=== PATIENT | female | born 2005 | race African-American/Black ===

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

== ENCOUNTER 2024-07-16 15:00 | Emergency (ER) | payer MEDICAID ==
[~2024-07-16] VITALS: Ht 160 cm; Wt 60.0 kg
[2024-07-16 15:25] VITALS: BP 105/56; PULSE 85; RESP 18; TEMP 98.6; O2SAT 99
== END 2024-07-16 18:37 | disposition home or self-care (01) ==
LOC: ER 15:00
DX: M25.569 Pain in unspecified knee (principal); Z53.21 Procedure and treatment not carried out due to patient leaving prior to being seen by health care provider

== ENCOUNTER 2024-08-12 12:00 | Inpatient (IN) | payer SELFPAY ==
[~2024-08-12] VITALS: Ht 309.9 cm; Wt 67.6 kg
[2024-08-12 12:28] VITALS: O2SAT 100
[2024-08-12] MEDS ORDERED: ACETAMINOPHEN 500MG TABLET PO ONE (16:45)
[2024-08-12 16:49] LABS: CLARITY URINE CLOUDY (CLEAR); COLOR URINE YELLOW (YELLOW); GLUCOSE URINE NEGATIVE (NEGATIVE); KETONES URINE 4+ (NEGATIVE); LEUKOCYTE ESTERASE URINE 3+ (NEGATIVE); NITRITE URINE POSITIVE (NEGATIVE); OCCULT BLOOD URINE NEGATIVE (NEGATIVE); PH URINE 6.5 (4.5-8.0); PROTEIN URINE TRACE (NEGATIVE); SPECIFIC GRAVITY URINE 1.014 (1.005-1.030)
[2024-08-12 17:28] LABS: BACTERIA URINE 3+; RBC URINE 0-2 /hpf (0-2); SQUAMOUS EPITHELIAL CELL URINE FEW /lpf (RARE/1+); WBC URINE TNTC /hpf (0-2)
[2024-08-12 18:02] LABS: CHLORIDE 104 mEq/L (98-107); POTASSIUM 3.7 mEq/L (3.5-5.1); SODIUM 135 mEq/L (136-145)
[2024-08-12 18:03] LABS: BASOPHILS % 0.9 % (0.0-2.0); CALCIUM 10.3 mg/dL (8.7-10.4); CARBON DIOXIDE 20 mEq/L (21-32); EOSINOPHILS % 0.2 % (0.0-5.0); HEMATOCRIT. 34.5 % (36.0-48.0); HEMOGLOBIN. 11.4 g/dL (12.0-16.0); LYMPHOCYTES % 3.7 % (20.0-50.0); MEAN CORPUSCULAR HEMOGLOBIN 31.8 pg (28.0-32.0); MEAN CORPUSCULAR HGB CONC 33.1 g/dL (31.0-37.0); MEAN CORPUSCULAR VOLUME 96.1 fL (81.0-99.0); MONOCYTES % 6.7 % (2.0-8.0); NEUTROPHILS % 88.5 % (40.0-76.0); PLATELET 204 x1000/uL (130-400); RED BLOOD CELL COUNT 3.58 mill/uL (4.2-5.4); RED CELL DISTRIBUTION WIDTH 14.2 % (11.6-14.6); WHITE BLOOD COUNT 13.7 x1000/uL (4.5-11.0)
[2024-08-12 18:08] LABS: CREATININE 0.7 mg/dL (0.6-1.0); GLUCOSE 82 mg/dL (70-105)
[2024-08-12 18:10] LABS: ALANINE AMINOTRANSFERASE 24 IU/L (10-49); ALBUMIN 4.2 g/dL (3.2-4.8); ASPARTATE AMINOTRANSFERASE 28 IU/L (<34)
[2024-08-12 18:11] LABS: BILIRUBIN DIRECT 0.1 mg/dL (<=3.0); BILIRUBIN TOTAL 0.6 mg/dL (0.1-1.0); PROTEIN TOTAL 7.2 g/dL (6.0-8.3)
[2024-08-12 18:14] LABS: UREA NITROGEN BLOOD < 5 mg/dL (9-23)
[2024-08-12 18:25] LABS: DIFFERENTIAL COMMENT 1
[2024-08-12] MEDS ORDERED: CEFTRIAXONE 1GM/50ML 50 ML IV ONE (19:15)
[2024-08-12 20:52] LABS: INR 0.9; PROTHROMBIN TIME 10.4 sec (9.6-11.0)
[2024-08-12] MEDS: ACETAMINOPHEN 500MG TABLET PO NR (20:52)
[2024-08-12] MEDS: CEFTRIAXONE 1GM/50ML 50 ML IV NR (20:52)
[2024-08-12 21:30] VITALS: BP 104/35; PULSE 79; RESP 18; TEMP 36.9474; O2SAT 98
[2024-08-12 22:00] VITALS: BP 104/35; PULSE 79; RESP 18; TEMP 36.974
[2024-08-13] VITALS: BP 96/44; PULSE 96; RESP 16; TEMP 36.16956; O2SAT 99
[2024-08-13] MEDS: SODIUM CHLORIDE 0.9% 1,000 ML IV SCH (00:16)
[2024-08-13 01:25] LABS: CHLORIDE 105 mEq/L (98-107); POTASSIUM 3.4 mEq/L (3.5-5.1); SODIUM 135 mEq/L (136-145)
[2024-08-13 01:26] LABS: CALCIUM 9.2 mg/dL (8.7-10.4); CARBON DIOXIDE 21 mEq/L (21-32)
[2024-08-13 01:31] LABS: CREATININE 0.6 mg/dL (0.6-1.0); GLUCOSE 87 mg/dL (70-105)
[2024-08-13 01:33] LABS: ALANINE AMINOTRANSFERASE 20 IU/L (10-49); ALBUMIN 3.6 g/dL (3.2-4.8); ASPARTATE AMINOTRANSFERASE 22 IU/L (<34); BILIRUBIN TOTAL 0.6 mg/dL (0.1-1.0); PHOSPHORUS 4.4 mg/dL (2.5-4.9); PROTEIN TOTAL 6.2 g/dL (6.0-8.3)
[2024-08-13 01:55] LABS: UREA NITROGEN BLOOD < 5 mg/dL (9-23)
[2024-08-13 04:00] VITALS: BP 96/51; PULSE 109; RESP 16; TEMP 36.28068; O2SAT 100
[2024-08-13] MEDS: MAGNESIUM 1 G PREMIX 100 ML IV NR (06:46)
[2024-08-13] MEDS: POTASSIUM CHLORIDE 20MEQ/PACKET PO NR (06:49)
[2024-08-13] MEDS: CEFTRIAXONE 1GM/50ML 50 ML IV SCH (11:23)
[2024-08-13 11:51] LABS: *AMPHETAMINES SCREEN URINE NEGATIVE (NEGATIVE); *BARBITURATES SCREEN URINE NEGATIVE (NEGATIVE); *BENZODIAZEPINES SCREEN URINE NEGATIVE (NEGATIVE); *COCAINE SCREEN URINE NEGATIVE (NEGATIVE); CANNABINOID URINE SCREEN NEGATIVE (NEGATIVE); METHADONE URINE SCREEN NEGATIVE (NEGATIVE); OPIATES URINE SCREEN NEGATIVE (NEGATIVE); PHENCYCLIDINE URINE SCREEN NEGATIVE (NEGATIVE)
[2024-08-13 11:52] LABS: ECSTASY MDMA SCREEN URINE NEGATIVE (NEGATIVE)
[2024-08-13] MEDS ORDERED: CEFP200T13 MT ×2 (15:36→17:05)
== END 2024-08-13 17:20 | disposition home or self-care (01) | DRG 566 ==
LOC: ER 12:00 → EDBEDREQ 19:22 → EDBEDREQTM 19:22 → 5WST 21:18
PROVIDERS: ADMIT Internal Medicine; ATTEND Internal Medicine
DX: O98.812 Other maternal infectious and parasitic diseases complicating pregnancy, second trimester (principal); A41.9 Sepsis, unspecified organism; O23.02 Infections of kidney in pregnancy, second trimester; O99.012 Anemia complicating pregnancy, second trimester; E87.6 Hypokalemia; E83.42 Hypomagnesemia; O99.282 Endocrine, nutritional and metabolic diseases complicating pregnancy, second trimester; Z3A.17 17 weeks gestation of pregnancy
CPT/HCPCS: 36415; 76805; 80048; 80053; 80076; 80305; 81003; 83036; 83605; 83735; 84100; 84702; 85025; 86850; 86900; 87077; 87186; 93005; 99285; J0696; J3475

== ENCOUNTER 2024-09-11 14:34 | Emergency (ER) | payer MEDICAID ==
[~2024-09-11] VITALS: Ht 157.5 cm; Wt 68.0 kg
[~2024-09-11 14:34] MED LIST: CEFP200T13 MT
[2024-09-11 14:42] VITALS: O2SAT 99
[2024-09-11 14:56] VITALS: BP 115/65; PULSE 115; RESP 18; TEMP 37.3; O2SAT 100
[2024-09-11] MEDS: SODIUM CHLORIDE 0.9% (SEPSIS BOLUS) IV ONE (15:13)
[2024-09-11 15:30] LABS: HEMATOCRIT. 28.7 % (36.0-48.0); MEAN CORPUSCULAR HEMOGLOBIN 32.8 pg (28.0-32.0); MEAN CORPUSCULAR HGB CONC 34.7 g/dL (31.0-37.0); MEAN CORPUSCULAR VOLUME 94.4 fL (81.0-99.0); PLATELET 171 x1000/uL (130-400); RED BLOOD CELL COUNT 3.04 mill/uL (4.2-5.4); RED CELL DISTRIBUTION WIDTH 13.1 % (11.6-14.6); WHITE BLOOD COUNT 10.2 x1000/uL (4.5-11.0)
[2024-09-11 15:32] LABS: DIFFERENTIAL COMMENT 1
[2024-09-11 15:38] LABS: INR 0.9; PROTHROMBIN TIME 10.2 sec (9.6-11.0)
[2024-09-11 15:46] LABS: CHLORIDE 103 mEq/L (98-107); POTASSIUM 3.3 mEq/L (3.5-5.1); SODIUM 134 mEq/L (136-145)
[2024-09-11 15:47] LABS: CARBON DIOXIDE 21 mEq/L (21-32)
[2024-09-11 15:51] LABS: CREATININE 0.7 mg/dL (0.6-1.0)
[2024-09-11 15:52] LABS: GLUCOSE 126 mg/dL (70-105)
[2024-09-11 15:53] LABS: ALANINE AMINOTRANSFERASE 20 IU/L (10-49); LACTIC ACID 2.2 mmol/L (0.4-2.0)
[2024-09-11 15:54] LABS: ALBUMIN 3.8 g/dL (3.2-4.8); ASPARTATE AMINOTRANSFERASE 18 IU/L (<34); BILIRUBIN DIRECT 0.2 mg/dL (<=3.0); BILIRUBIN TOTAL 0.6 mg/dL (0.1-1.0); PROTEIN TOTAL 6.8 g/dL (6.0-8.3)
[2024-09-11 15:56] LABS: PLATELET ESTIMATE NORMAL
[2024-09-11 16:05] LABS: HCG SCREEN POSITIVE
[2024-09-11 16:06] LABS: B-HCG QUANTITATIVE 23093 mIU/mL (<3); UREA NITROGEN BLOOD < 5 mg/dL (9-23)
[2024-09-11] MEDS: CEFAZOLIN 1000MG PREMIX 50 ML IV ONE (16:57)
[2024-09-11 17:34] LABS: CLARITY URINE CLOUDY (CLEAR); COLOR URINE YELLOW (YELLOW); GLUCOSE URINE NEGATIVE (NEGATIVE); KETONES URINE 1+ (NEGATIVE); LEUKOCYTE ESTERASE URINE 3+ (NEGATIVE); NITRITE URINE NEGATIVE (NEGATIVE); OCCULT BLOOD URINE TRACE (NEGATIVE); PH URINE 6.5 (4.5-8.0); PROTEIN URINE TRACE (NEGATIVE); SPECIFIC GRAVITY URINE 1.006 (1.005-1.030); UROBILINOGEN URINE 0.2 E.U./dL (0.2-1.0)
[2024-09-11 17:58] LABS: SQUAMOUS EPITHELIAL CELL URINE 1+ /lpf (RARE/1+); WBC URINE 25-50 /hpf (0-2)
[2024-09-11 17:59] LABS: BACTERIA URINE 2+
== END 2024-09-11 17:45 | disposition short-term general hospital (02) ==
LOC: ER 14:34
DX: O23.42 Unspecified infection of urinary tract in pregnancy, second trimester (principal); O26.892 Other specified pregnancy related conditions, second trimester; Z3A.22 22 weeks gestation of pregnancy
CPT/HCPCS: 80076; 80048; 81003; 84703; 84702; 83605; 83690; 85025; 85610; 86850; 86900; 86901; 87040; 87086; 87186; 87077; 36415; 84145; 76770; 76815; 96361; 96365; 99291; J0690; J7030; Z7610 ×2